=== PATIENT | male | born 1945 | race Caucasian/White ===

== ENCOUNTER → 2017-07-29 09:16 | Outpatient (CLI) | payer MEDICARE, OTHER, SELFPAY ==
--- NOTE | 2017-07-29 09:39 | MRI_ITS ---
STUDY: MRI LEFT THIGH WITHOUT CONTRAST REASON FOR EXAM: Male, 71 years old. Myopathy, elevated CK, bilateral leg pain TECHNIQUE: Standardized fat and water weighted pulse sequences were obtained in all 3 orthogonal planes. COMPARISON: None. FINDINGS: There is mild edema at the distal adductor juice musculature (image 40/50 axial inversion recovery, 14/28 sagittal inversion recovery). There is mild to moderate atrophy at the semitendinosus musculature at the mid thigh (image 29/50 axial T1). There is a small amount of fluid adjacent to the greater trochanter (image 7/50 axial inversion recovery, 14/30 coronal inversion recovery). The visualized portions of the left femur are intact. There is no fracture. There is no infiltrative marrow process. No osteonecrosis. There is no soft tissue mass. There is no fluid collection. There is no hematoma. MRI/Lower Ext/No Jt/w/o IMPRESSION: Edema at the distal adductor juice musculature compatible with myotendinous strain or inflammation Mild to moderate atrophy at the semitendinosus musculature at the mid thigh Greater trochanteric bursitis Electronically Signed: Adrian Hogan MD at 10:13 EST Tel , Service support ,
--- NOTE | 2017-07-29 09:40 | MRI_ITS ---
STUDY: MRI RIGHT HIP WITHOUT CONTRAST REASON FOR EXAM: Male, 71 years old. Myopathy, elevated CK, bilateral leg pain TECHNIQUE: Standardized fat and water weighted pulse sequences were obtained in all 3 orthogonal planes. COMPARISON: None. FINDINGS: There is mild to moderate atrophy at the semitendinosus musculature at the mid thigh (image 28/50 axial T1). There are degenerative changes of the right hip (image 13/28 coronal T2). There is suggestion of fluid at the right knee (image 16/28 sagittal inversion recovery, 9/30 coronal inversion recovery). The visualized right femur is intact. There is no fracture. There is no infiltrative marrow process. There is no osteonecrosis There is no soft tissue mass. There is no fluid collection. There is no hematoma or myotendinous strain. There is no muscle edema. MRI/Lower Ext/No Jt/w/o IMPRESSION: Mild to moderate atrophy of the semitendinosus musculature at the mid thigh Degenerative changes of the right hip Right knee joint effusion Electronically Signed: Adrian Hogan MD at 10:10 EST Tel , Service support ,
== END ==
PROVIDERS: Family Provider Internal Medicine; PCP Internal Medicine; Visit Provider Internal Medicine Rheumatology
DX: R74.8 Abnormal levels of other serum enzymes (principal); G72.9 Myopathy, unspecified
CPT/HCPCS: 73718

== ENCOUNTER 2017-08-02 07:10 | Day surgery (SDC) | payer MEDICARE, OTHER, SELFPAY ==
[2017-08-02 07:36] VITALS: BP 129/82; PULSE 54; RESP 16; TEMP 36.5; O2SAT 97; BMI 31.6
[2017-08-02] MEDS: Cefazolin 2 GM in 0.9% Normal Saline 100 ML IV (08:53)
--- NOTE | 2017-08-02 09:01 | PCM.DC.GS ---
Discharge Diet: Light diet - advance as tolerated - If you have questions about your diet instructions, please talk to your doctor. Discharge Activity: May Not Drive - for 1 week or while taking narcotic pain medicine. May shower in (days): 1 Lifting Restrictions: 10 pounds Call your doctor if your incision/area has: Continuous Slow Oozing, Sudden Increased Bleeding, Increased Pain/ Swelling, Increased Redness, Foul Smelling Discharge Call your doctor if you observe: Fever of 101 or Higher Suture Line Care: Avoid Pulling/Pushing, Avoid Pinching/Bending Additional Dressing/Incision Instructions:: Change or remove dressing in 4 days. Leave steri-strips in place for 1 week. Allergies/Adverse Reactions: Allergies No Known Allergies Allergy (Verified 07/27/17 08:41) Medications to take at Discharge Amlodipine [Norvasc] 5 mg PO LUNCH 11/22/16 Aspirin [Aspirin, Baby] 81 mg PO DAILY 11/22/16 Azilsartan Medoxomil [Edarbi] 80 mg PO DAILY 11/22/16 Cholecalciferol (Vitamin D3) [Vitamin D3] 2,000 unit PO TID 11/22/16 Clopidogrel Bisulfate [Clopidogrel] 75 mg PO DAILY 11/22/16 Metoprolol Succinate [Toprol Xl] 100 mg PO QHS 11/22/16 [place]-3S/Dha/Epa/Fish Oil [Fish Oil 1,200 mg Softgel] 2 ea PO BID 11/22/16 Pantoprazole Sodium [Protonix] 40 mg PO QHS 11/22/16 coenzyme Q10 50 mg chewable tablet 100 mg PO QDAY tab 07/24/17 colesevelam 625 mg tablet 1,875 mg PO LUNCH tab 07/24/17 Colesevelam Hydrochloride [Welchol] 1,875 mg PO DINNER 07/27/17 Evolocumab [Repatha Syringe] 140 mg SQ QWEEK 07/27/17 Levothyroxine [Synthroid] 100 mcg PO DAILY 07/27/17 Oxycodone HCl/Acetaminophen [Percocet 5/325] 1 - 2 tab PO Q4H PRN PRN 4 Days #30 tab 08/02/17 The following prescriptions were given: Oxycodone HCl/Acetaminophen [Percocet 5/325] 1 - 2 tab PO Q4H PRN PRN 4 Days #30 tab PRN Reason: Pain Primary Care Physician: Danyelle Akers DO [Primary Care Provider] - Please Follow Up With: Bradly Frazier MD - [phone] When: Call to make an appointment to be seen in about 10 days.
--- NOTE | 2017-08-02 09:02 | PCM.OPRPT ---
Problem List (1) Suture granuloma Status: Acute Qualifiers: Encounter type: subsequent encounter Qualified Code(s): T81.89XD - Other complications of procedures, not elsewhere classified, subsequent encounter Report of Operation Date of Procedure: 08/02/17 Pre-Operative Diagnosis: t81.89xd suture granuloma Post-Operative Diagnosis: same Surgery/Procedure Performed:: removal of suture granuloma at umbilicus Type of Anesthesia:: MAC Anesthesiologist: Elier Martinez Specimen's removed: suture granuloma Description of Procedure: Patient was brought into the operating room. Under excellent general anesthetic the abdomen was sterilely prepped and draped in the usual fashion. His previous incision at the umbilicus was opened up and I dissected down and identified to 0 Prolene sutures. I remove these without difficulty. I inspected the sutures they were removed in their entirety and no Prolene was left. There was no fascial defects. I brought the skin together with deep dermal stitches of 4-0 Monocryl. Steri-Strips are applied sterile dressings were applied and the patient tolerated the procedure well. - Admit VTE Documentation VTE Present on Admission: No VTE Mechan Device Prophylaxis: SCD's VTE Pharm Prophylaxis ordered?: No Reason prophylaxis not ordered:: Treatment Not Indicated
[2017-08-02] MEDS: Bupivacaine 0.25% 30 ML Vial (09:07)
[2017-08-02 09:26] VITALS: BP 116/65; BP 129/82; PULSE 64; RESP 16; TEMP 36.1; O2SAT 100
[2017-08-02 09:30] VITALS: BP 114/70; BP 129/82; PULSE 57; RESP 16; O2SAT 95
[2017-08-02 09:45] VITALS: BP 122/50; BP 129/82; PULSE 58; RESP 16; TEMP 36.3; O2SAT 95
[2017-08-02 10:20] VITALS: BP 129/82
== END 2017-08-02 10:20 | disposition home or self-care (01) ==
LOC: SDC 07:11 → AC 07:12
PROVIDERS: Family Provider Internal Medicine; PCP Internal Medicine; Visit Provider Surgery
PROC: (CPT 10120; principal; 2017-08-02 09:00)
DX: T81.89XA Other complications of procedures, not elsewhere classified, initial encounter (principal); I10 Essential (primary) hypertension; I25.2 Old myocardial infarction; K21.9 Gastro-esophageal reflux disease without esophagitis; M19.90 Unspecified osteoarthritis, unspecified site; I51.9 Heart disease, unspecified; Z79.82 Long term (current) use of aspirin; Z79.02 Long term (current) use of antithrombotics/antiplatelets; Z79.899 Other long term (current) drug therapy; Z85.828 Personal history of other malignant neoplasm of skin; E07.9 Disorder of thyroid, unspecified; E78.00 Pure hypercholesterolemia, unspecified; Z95.5 Presence of coronary angioplasty implant and graft
CPT/HCPCS: 00400; 10120; J7120; J2405

== ENCOUNTER → 2017-08-18 10:09 | Outpatient (CLI) | payer MEDICARE, OTHER, SELFPAY ==
--- NOTE | 2017-08-18 10:13 | RAD_ITS ---
STUDY: X-RAY CHEST REASON FOR EXAM: Male, 71 years old. Abnormal lung function tests. TECHNIQUE: Frontal and lateral views of the chest. COMPARISON: 09/16/2015. FINDINGS: The lungs are clear and expanded. There is no demonstrated pleural abnormality. Normal size heart. Normal mediastinum and analilia. Normal visualized pulmonary arteries. Normal visualized aortic arch and descending thoracic aorta. Normal visualized thoracic spine. Normal visualized ribs, clavicles, and shoulders. There is no demonstrated abnormality of the visualized soft tissue structures of the upper abdomen. RAD/Chest PA and Lateral IMPRESSION: Normal x-ray examination of the chest. Electronically Signed: Eduardo Reyes MD at 16:50 EDT , Service support ,
== END ==
PROVIDERS: Family Provider Internal Medicine; PCP Internal Medicine; Visit Provider Internal Medicine
DX: R94.2 Abnormal results of pulmonary function studies (principal)
CPT/HCPCS: 71046

== ENCOUNTER → 2017-08-22 09:48 | Outpatient (CLI) | payer MEDICARE, OTHER, SELFPAY ==
--- NOTE | 2017-08-23 17:47 | PFTCOMP ---
COMPLETE PULMONARY FUNCTION TEST INTERPRETATION Brief HPI: Patient is a 71 year old male, currently under the care of Dr. Akers, who presents to [facility] for complete pulmonary function tests secondary to diagnosis of abnormal PFT. Respiratory therapist reports good effort and reproducible results. Interpretation: Forced expiration spirometry shows no large airways obstructive ventilatory defect with an FEV1 of 92 % predicted. There is some bronchodilator response, but this does not reach clinical significance by strict ATS criteria. Spirograms are of good quality and plateau normally. The respiratory flow volume loop shows a normal pattern. Lung volumes by body plethysmography show a normal total lung capacity at 5.42 L, 93 % predicted. All other lung volumes are within normal limits. Diffusion capacity by carbon monoxide is normal at 95 % predicted. The airway resistance is normal. No previous pulmonary function tests were available for review. Impression: These pulmonary function tests are grossly within normal limits. If asthma is a consideration, methacholine challenge would be appropriate.
== END ==
PROVIDERS: Family Provider Internal Medicine; PCP Internal Medicine; Visit Provider Internal Medicine
DX: R94.2 Abnormal results of pulmonary function studies (principal)
CPT/HCPCS: 94060; 94726; 94729

== ENCOUNTER → 2017-10-09 07:52 | Outpatient (CLI) | payer MEDICARE, OTHER, SELFPAY ==
--- NOTE | 2017-10-09 07:56 | US_ITS ---
STUDY: THYROID ULTRASOUND REASON FOR EXAM: Male, 72 years old. Prior right thyroidectomy. TECHNIQUE: Ultrasound evaluation of the thyroid was performed with real-time and static pitts-scale imaging. COMPARISON: October 03, 2016 FINDINGS: RIGHT LOBE: Status post right thyroidectomy. LEFT LOBE: The left lobe of the thyroid gland measures 3.6 x 2 x 1.3 cm. There is a homogeneous echotexture. There are no demonstrated solid, cystic or complex lesions. ISTHMUS: The isthmus measures 3 mm. The regional lymph nodes are normal. US/Thyroid IMPRESSION: Status post right thyroidectomy. Unremarkable left thyroid lobe. No nodules. Electronically Signed: Marcel Daniel DO at 10:45 EDT Tel , Service support ,
--- NOTE | 2017-10-09 07:56 | US_ITS ---
STUDY: ABDOMINAL ULTRASOUND - RIGHT UPPER QUADRANT REASON FOR VISIT: Male, 72 years old. Fatty liver. Cholecystectomy in 2010 TECHNIQUE: Ultrasound evaluation of the right upper quadrant was performed with real-time and static pitts-scale imaging. TECHNICAL QUALITY: Adequate. COMPARISON: None. FINDINGS: Liver: The liver measures 19.3 cm. There is increased echogenicity consistent with fatty infiltration. The bile ducts are within normal limits. There is hepatic color flow. The direction of portal flow is hepatopetal. There is no demonstrated mass lesion. Gallbladder: The patient is status post cholecystectomy. Common Bile Duct (C.B.D.): The common bile duct measures 4.8 mm. Pancreas: Normal size of the head, body and tail of the pancreas. There is increased echogenicity of the pancreas. There is no demonstrated pancreatic mass or cyst. Right Kidney: Normal size of the right kidney. The right kidney measures 12.9 cm. Normal renal cortex. The right cortex measures 1.5 cm. Several anechoic right renal cysts, largest one measuring 2.0 x 1.9 x 1.6 cm in the midpole region. Punctate 5 mm calcification. There is no right hydronephrosis. US/Liver IMPRESSION: Hepatomegaly with hepatic steatosis. Punctate nonobstructing right nephrolithiasis. Right renal cysts. Prior cholecystectomy. Electronically Signed: Marcel Daniel DO at 10:44 EDT Tel , Service support ,
--- NOTE | 2017-10-09 08:45 | CDU_ITS ---
Reason For Study: Carotid Stenosis Rt. Velocities/BP Lt. Velocities/BP Prox CCA 82/22 cm/sec. Prox CCA 55/15 cm/sec. Mid CCA 67/19 cm/sec. Mid CCA 69/19 cm/sec. Dist CCA 55/18 cm/sec. Dist CCA 51/15 cm/sec. Prox ICA 62/19 cm/sec. Prox ICA 60/15 cm/sec. Mid ICA 64/20 cm/sec. Mid ICA 73/23 cm/sec. Dist ICA 63/25 cm/sec. Dist ICA 62/24 cm/sec. Rt. ICA/CCA = 0.95. Lt. ICA/CCA = 1.05. Prox ECA 51/8 cm/sec. Prox ECA 56/10 cm/sec. Rt. Vert. 23/6 cm/sec. Lt. Vert. 42/17 cm/sec. Right Extracranial There is intimal thickening but no significant atherosclerotic plaque noted in the right common carotid artery. There is homogeneous, smooth atherosclerotic plaque noted in the right internal carotid artery. There is intimal thickening but no significant atherosclerotic plaque noted in the right external carotid artery. Antegrade flow is noted in the right vertebral artery. Left Extracranial There is intimal thickening but no significant atherosclerotic plaque noted in the left common carotid artery. There is heterogeneous, smooth atherosclerotic plaque noted in the left internal carotid artery. There is intimal thickening but no significant atherosclerotic plaque noted in the left external carotid artery. Antegrade flow is noted in the left vertebral artery. Procedure Carotid Duplex [id number]. Exam performed in department. Interpretation Summary Mild (<50%) stenosis right extracranial internal carotid. Mild (<50%) stenosis left extracranial internal carotid. Flow within the vertebral arteries is antegrade bilaterally. Ordering Physician: Danyelle Akers Referring Physician: Danyelle Akers Performed By: Zoila Moore, IVONNE, RVT
== END ==
PROVIDERS: Family Provider Internal Medicine; PCP Internal Medicine; Visit Provider Internal Medicine
DX: E04.1 Nontoxic single thyroid nodule (principal); I65.23 Occlusion and stenosis of bilateral carotid arteries; K76.0 Fatty (change of) liver, not elsewhere classified
CPT/HCPCS: 76536; 76705; 93880

== ENCOUNTER → 2018-01-09 10:36 | Outpatient (CLI) | payer MEDICARE, OTHER, SELFPAY | PROVIDERS: Family Provider Internal Medicine; PCP Internal Medicine; Visit Provider Internal Medicine | DX: I25.10 Atherosclerotic heart disease of native coronary artery without angina pectoris (principal) | CPT/HCPCS: 84484 ==

== ENCOUNTER → 2018-04-17 09:39 | Outpatient (CLI) | payer MEDICARE, OTHER, SELFPAY ==
--- NOTE | 2018-04-17 09:42 | RAD_ITS ---
STUDY: X-RAY - RIGHT KNEE REASON FOR EXAM: Male, 72 years old. Pain following a recent fall. TECHNIQUE: 4 view(s) of the knee. COMPARISON: None. FINDINGS: Normal visualized distal femur. Normal visualized proximal tibia and fibula. Normal proximal tibiofibular articulation. There is severe degenerative arthrosis of the medial femorotibial compartment with severe joint space narrowing. There is moderate degenerative arthrosis of the lateral femorotibial compartment with moderate joint space narrowing. There is severe degenerative arthrosis of the patellofemoral articulation. Moderate joint effusion. RAD/Knee 4 or More Views IMPRESSION: Degenerative arthrosis. Moderate joint effusion. Electronically Signed: German Blanca MD at 10:28 EST Tel [phone], Service support ,
== END ==
PROVIDERS: Family Provider Internal Medicine; PCP Internal Medicine; Referring Provider Internal Medicine; Visit Provider Internal Medicine
DX: M25.561 Pain in right knee (principal)
CPT/HCPCS: 73564

== ENCOUNTER → 2018-04-23 12:05 | Outpatient (CLI) | payer MEDICARE, OTHER, SELFPAY ==
--- NOTE | 2018-04-23 12:12 | RAD_ITS ---
STUDY: X-RAY CHEST REASON FOR EXAM: Male, 72 years old. Acute bronchitis. TECHNIQUE: PA and lateral chest COMPARISON: 08/18/2017 FINDINGS: The lungs are clear and expanded. Normal cardiomediastinal silhouette, analilia and pleural margins. No acute osseous or upper abdominal process. RAD/Chest PA and Lateral IMPRESSION: No acute cardiopulmonary process. There is no convincing radiographic evidence of acute pneumonia or bronchitis. Electronically Signed: Girish Freed, at 13:12 EST Tel , Service support ,
== END ==
PROVIDERS: Family Provider Internal Medicine; PCP Internal Medicine; Referring Provider Internal Medicine; Visit Provider Internal Medicine
DX: J20.9 Acute bronchitis, unspecified (principal)
CPT/HCPCS: 71046

== ENCOUNTER → 2018-08-15 16:12 | Outpatient (CLI) | payer MEDICARE, OTHER, SELFPAY ==
--- NOTE | 2018-08-15 16:20 | RAD_ITS ---
STUDY: X-RAY - LEFT SHOULDER REASON FOR EXAM: Left shoulder pain, history of surgery. TECHNIQUE: 4 view(s) of the shoulder. COMPARISON: None. FINDINGS: Normal glenohumeral articulation. Status post excision of the distal clavicle. Normal acromion. Normal humeral head and visualized proximal humerus. The soft tissue structures are unremarkable. Normal visualized pulmonary apex. RAD/Shoulder min 2 Views IMPRESSION: Unremarkable postoperative x-ray examination of the left shoulder. Electronically Signed: Ascencion Mesa MD at 11:48 EDT Tel , Service support ,
== END ==
PROVIDERS: Family Provider Internal Medicine; PCP Internal Medicine; Referring Provider Internal Medicine; Visit Provider Internal Medicine
DX: M25.512 Pain in left shoulder (principal)
CPT/HCPCS: 73030

== ENCOUNTER 2018-09-19 06:25 | Day surgery (SDC) | payer MEDICARE, OTHER, SELFPAY ==
[2018-08-22 09:26] VITALS: BMI 31.6
[2018-09-19] VITALS (7 sets, daily range): BP systolic 84–117; BP diastolic 55–91; PULSE 55–58; RESP 14–16; TEMP 36.7–36.9; O2SAT 92–96; BMI 31.9
--- NOTE | 2018-09-19 07:32 | OP.ENDO_ITS ---
09/19/2018 Danyelle Akers Re : Colonoscopy procedure for Se Akers This procedure was performed on Wednesday, September 19, 2018. My impressions and recommendations are as follows: Impressions : - Diverticulosis in the sigmoid colon. No specimens collected. - The examination was otherwise normal on direct and retroflexion views. Recommendations : - Discharge patient to home. - Resume previous diet. - Continue present medications. - Repeat colonoscopy in 10 years for screening purposes. - Return to my office in 1 week. My findings are described in the full procedure note, which is enclosed. If I can be of further assistance, please feel free to contact me at Doctor phone number(s): , Fax: [phone], Work: . Sincerely, MD Bradly Lombardi MD 09/19/2018 7:32:29 AM This report has been signed electronically.
--- NOTE | 2018-09-27 13:37 | HP_ITS ---
Intake Vital Signs 09/27/18 Body Mass Index (BMI) 31.9 09/27/18 Body Mass Index (BMI) 31.9 09/27/18 Weight: 200 lb 09/27/18 Respiratory Rate 16 09/27/18 Pulse Rate 60 Intake Visit Reasons: f/u c-scope 09/18/18 dp/discuss staple removal Allergies No Known Allergies Allergy (Verified 09/27/18 13:32) Medications Amlodipine [Norvasc] 5 mg PO LUNCH 11/22/16 [History Confirmed 09/27/18] Aspirin [Aspirin, Baby] 81 mg PO DAILY 11/22/16 [History Confirmed 09/27/18] Cholecalciferol (Vitamin D3) [Vitamin D3] 2,000 unit PO TID 11/22/16 [History Confirmed 09/27/18] Clopidogrel Bisulfate [Clopidogrel] 75 mg PO DAILY 11/22/16 [History Confirmed 09/27/18] Metoprolol Succinate [Toprol Xl] 100 mg PO BID 11/22/16 [History Confirmed 09/27/18] [place]-3S/Dha/Epa/Fish Oil [Fish Oil 1,200 mg Softgel] 2 ea PO BID 11/22/16 [History Confirmed 09/27/18] Pantoprazole Sodium [Protonix] 40 mg PO DAILY 11/22/16 [History Confirmed 09/27/18] coenzyme Q10 50 mg chewable tablet 200 mg PO QDAY tab 07/24/17 [History Confirmed 09/27/18] Levothyroxine [Synthroid] 100 mcg PO DAILY 07/27/17 [History Confirmed 09/27/18] alirocumab 75 mg/mL subcutaneous pen injector 75 mg SC Q2W 08/22/18 [History Confirmed 09/27/18] [facility] Medical History Suture granuloma (Acute) Acid reflux (Acute) Arthritis (Acute) Back problem (Acute) Heart disease (Acute) Past heart attack (Acute) Hypertension (Chronic) Surgical History History of angioplasty (Acute) History of laparoscopic cholecystectomy (Acute) History of repair of right rotator cuff (Acute) History of right knee surgery (Acute) History of total right knee replacement (Acute) history excision suture granuloma (Acute ~08/02/17) history left shoulder surgery (Acute) history right carpal tunnel release (Acute) history right thyroid lobectomy (Acute) history trigger finger release (Acute) Family History Brother Bleeding disorder Diabetes Hypertension Heart disease High cholesterol CVA (cerebral vascular accident) Mother Heart disease Hypertension CVA (cerebral vascular accident) Father Heart disease Hypertension CVA (cerebral vascular accident) Social History Smoking Status: Never smoker alcohol intake: current alcohol intake frequency: a few times a month substance use type: does not use HPI HPI HPI: SON HARRIS is a 72 M who presents to the office today for HPI HPI Surgical H&P: Yes HPI: SON HARRIS is a 72 M who presents to the office today for follow-up from a colonoscopy. Patient had a colonoscopy completed it [facility] on 09/19/2018. This was done for a personal history of colonic polyps his scope was rather negative he had diverticulosis of the sigmoid colon otherwise there was no abnormalities identified I have recommended that he undergo another colonoscopy in 10 years. Back in July of last year I removed several Prolene sutures that were suture granulomas from his umbilical incision. He feels another one on the lateral aspect of the incision that is painful and is giving him shooting pains throughout the right side of his abdomen. Nothing appears to be poking through the skin but he says he can definitely feel it and palpate it. Exam Const General: no acute distress, well developed, well hydrated Orientation: oriented to person, oriented to place, oriented to time [facility] Head: normocephalic, atraumatic Ears: external ears normal Mouth: moist mucous membranes Eyes Sclera: sclerae normal Pupils: normal by confrontation Neck Neck: no lymphadenopathy noted Neck mass: No Thyroid: thyroid normal, symmetrical Chest Chest palpation & inspection: normal inspection of the chest Resp Effort & Inspection: normal respiratory effort Auscultation: clear to auscultation bilaterally Percussion: percussion normal Cardio Rate: regular rate Rhythm: regular rhythm GI Palpation: soft, no hepatosplenomegaly, no masses, nontender Rectal Exam: other Other: Rectal exam deferred. Skin Other: In the umbilical area on the right side of the incision is an obvious suture granuloma that is tender to touch. Feels consistent with another Prolene suture Extrem General: normal to inspection, no clubbing, cyanosis or edema Assessment & Plan Problems 1. Suture granuloma, subsequent encounter T81.89XD Plan My plan is to excise the suture granuloma in the OR under a general anesthetic.We discussed the risks and benefits of the planned procedure. I have informed the patient that complications can occur including failure to complete the procedure. The patient had the opportunity to ask questions concerning the planned procedure. My staff has also explained the procedure to the patient in understandable terms and has given the patient printed material concerning the procedure. The patient freely consents to the procedure. Coding Level of Care Code Off vis,est,level 2 Diagnoses Suture granuloma, subsequent encounter T81.89XD ??Encounter type: subsequent encounter I have re-examined the patient. There are no clinical changes since date of exam.
== END 2018-09-19 08:30 | disposition home or self-care (01) ==
LOC: EN 06:26 → AC 06:27
PROVIDERS: Family Provider Internal Medicine; PCP Internal Medicine; Referring Provider Internal Medicine; Visit Provider Surgery
PROC: 0DJD8ZZ Inspection of Lower Intestinal Tract, Via Natural or Artificial Opening Endoscopic (ICD-10-PCS; CPT 45378; principal; 2018-09-19 07:25)
DX: Z12.11 Encounter for screening for malignant neoplasm of colon (principal); K57.30 Diverticulosis of large intestine without perforation or abscess without bleeding; Z86.010 Personal history of colon polyps; Z79.82 Long term (current) use of aspirin; Z79.899 Other long term (current) drug therapy; M19.90 Unspecified osteoarthritis, unspecified site; K21.9 Gastro-esophageal reflux disease without esophagitis; I10 Essential (primary) hypertension; I25.2 Old myocardial infarction; I51.9 Heart disease, unspecified
CPT/HCPCS: G0105; J7120

== ENCOUNTER 2018-10-04 06:10 | Day surgery (SDC) | payer MEDICARE, OTHER, SELFPAY ==
[2018-09-27 13:33] VITALS: BMI 31.9
--- NOTE | 2018-09-27 13:37 | HP_ITS ---
Intake Vital Signs 09/27/18 Body Mass Index (BMI) 31.9 09/27/18 Body Mass Index (BMI) 31.9 09/27/18 Weight: 200 lb 09/27/18 Respiratory Rate 16 09/27/18 Pulse Rate 60 Intake Visit Reasons: f/u c-scope 09/18/18 dp/discuss staple removal Allergies No Known Allergies Allergy (Verified 09/27/18 13:32) Medications Amlodipine [Norvasc] 5 mg PO LUNCH 11/22/16 [History Confirmed 09/27/18] Aspirin [Aspirin, Baby] 81 mg PO DAILY 11/22/16 [History Confirmed 09/27/18] Cholecalciferol (Vitamin D3) [Vitamin D3] 2,000 unit PO TID 11/22/16 [History Confirmed 09/27/18] Clopidogrel Bisulfate [Clopidogrel] 75 mg PO DAILY 11/22/16 [History Confirmed 09/27/18] Metoprolol Succinate [Toprol Xl] 100 mg PO BID 11/22/16 [History Confirmed 09/27/18] [place]-3S/Dha/Epa/Fish Oil [Fish Oil 1,200 mg Softgel] 2 ea PO BID 11/22/16 [History Confirmed 09/27/18] Pantoprazole Sodium [Protonix] 40 mg PO DAILY 11/22/16 [History Confirmed 09/27/18] coenzyme Q10 50 mg chewable tablet 200 mg PO QDAY tab 07/24/17 [History Confirmed 09/27/18] Levothyroxine [Synthroid] 100 mcg PO DAILY 07/27/17 [History Confirmed 09/27/18] alirocumab 75 mg/mL subcutaneous pen injector 75 mg SC Q2W 08/22/18 [History Confirmed 09/27/18] [facility] Medical History Suture granuloma (Acute) Acid reflux (Acute) Arthritis (Acute) Back problem (Acute) Heart disease (Acute) Past heart attack (Acute) Hypertension (Chronic) Surgical History History of angioplasty (Acute) History of laparoscopic cholecystectomy (Acute) History of repair of right rotator cuff (Acute) History of right knee surgery (Acute) History of total right knee replacement (Acute) history excision suture granuloma (Acute ~08/02/17) history left shoulder surgery (Acute) history right carpal tunnel release (Acute) history right thyroid lobectomy (Acute) history trigger finger release (Acute) Family History Brother Bleeding disorder Diabetes Hypertension Heart disease High cholesterol CVA (cerebral vascular accident) Mother Heart disease Hypertension CVA (cerebral vascular accident) Father Heart disease Hypertension CVA (cerebral vascular accident) Social History Smoking Status: Never smoker alcohol intake: current alcohol intake frequency: a few times a month substance use type: does not use HPI HPI HPI: SON HARRIS is a 72 M who presents to the office today for HPI HPI Surgical H&P: Yes HPI: SON HARRIS is a 72 M who presents to the office today for follow-up from a colonoscopy. Patient had a colonoscopy completed it [facility] on 09/19/2018. This was done for a personal history of colonic polyps his scope was rather negative he had diverticulosis of the sigmoid colon otherwise there was no abnormalities identified I have recommended that he undergo another colonoscopy in 10 years. Back in July of last year I removed several Prolene sutures that were suture granulomas from his umbilical incision. He feels another one on the lateral aspect of the incision that is painful and is giving him shooting pains throughout the right side of his abdomen. Nothing appears to be poking through the skin but he says he can definitely feel it and palpate it. Exam Const General: no acute distress, well developed, well hydrated Orientation: oriented to person, oriented to place, oriented to time [facility] Head: normocephalic, atraumatic Ears: external ears normal Mouth: moist mucous membranes Eyes Sclera: sclerae normal Pupils: normal by confrontation Neck Neck: no lymphadenopathy noted Neck mass: No Thyroid: thyroid normal, symmetrical Chest Chest palpation & inspection: normal inspection of the chest Resp Effort & Inspection: normal respiratory effort Auscultation: clear to auscultation bilaterally Percussion: percussion normal Cardio Rate: regular rate Rhythm: regular rhythm GI Palpation: soft, no hepatosplenomegaly, no masses, nontender Rectal Exam: other Other: Rectal exam deferred. Skin Other: In the umbilical area on the right side of the incision is an obvious suture granuloma that is tender to touch. Feels consistent with another Prolene suture Extrem General: normal to inspection, no clubbing, cyanosis or edema Assessment & Plan Problems 1. Suture granuloma, subsequent encounter T81.89XD Plan My plan is to excise the suture granuloma in the OR under a general anesthetic.We discussed the risks and benefits of the planned procedure. I have informed the patient that complications can occur including failure to complete the procedure. The patient had the opportunity to ask questions concerning the planned procedure. My staff has also explained the procedure to the patient in understandable terms and has given the patient printed material concerning the procedure. The patient freely consents to the procedure. Coding Level of Care Code Off vis,est,level 2 Diagnoses Suture granuloma, subsequent encounter T81.89XD ??Encounter type: subsequent encounter I have re-examined the patient. There are no clinical changes since date of exam.
[2018-10-04] VITALS (14 sets, daily range): BP systolic 70–126; BP diastolic 48–77; PULSE 46–55; RESP 14–16; TEMP 36.1–36.6; O2SAT 92–98; BMI 32.4
[2018-10-04] MEDS: Cefazolin 2 GM in 0.9% Normal Saline 100 ML IV (07:23)
--- NOTE | 2018-10-04 07:34 | PCM.OPRPT ---
Problem List (1) Suture granuloma Status: Acute Qualifiers: Encounter type: subsequent encounter Report of Operation Date of Procedure: 10/04/18 Pre-Operative Diagnosis: Suture granuloma Post-Operative Diagnosis: Same Surgery/Procedure Performed:: removal of suture granuloma Type of Anesthesia:: Local MAC Anesthesiologist: Yuri Yousif Specimen's removed: Prolene suture Fluids Replaced: 200 CC Description of Procedure: Patient was brought into the operating room. Placed in the supine position. Under excellent MAC anesthetic the abdomen was sterilely prepped and draped in usual fashion. Local was injected at the umbilical incision. I opened up the incision. I dissected down grabbed the Prolene suture and removed it in its entirety with a scalpel palpation did not reveal any other suture granulomas. Local was injected. The skin was brought together with interrupted 5-0 nylon. Sterile dressings were applied. The patient tolerated the procedure well. - Admit VTE Documentation VTE Present on Admission: No VTE Mechan Device Prophylaxis: SCD's VTE Pharm Prophylaxis ordered?: No Reason prophylaxis not ordered:: Treatment Not Indicated
[2018-10-04] MEDS: Bupivacaine Mpf 0.5% 30 ML VIAL (07:36)
--- NOTE | 2018-10-04 07:38 | PCM.DC.HER ---
Discharge Diet: Light diet - advance as tolerated Discharge Activity: Return to Normal Activity, May Drive - when you are no longer taking narcotic pain medications., May Shower - with the bandage in place 1-2 days after surgery. Lifting Restrictions: 20 pounds for 8 weeks. Additional Activity Instructions:: Climbing stairs is fine, walking is encouraged. Sitting in bed may be uncomfortable. Sitting up using your lateral muscles (sitting up sideways) is usually more comfortable. Do not drive, work heavy equipment of sign legal documents for 24 hours. If your hernia repair was an ingunial repair, you may have scrotal swelling, an ice pack and/or athletic support can provide more comfort. Pain medications may cause nausea, you should typically eat light foods as you take your pain medications. Pain medications may also cause constipation. If you have difficulty with this, discuss with your doctor. Call your doctor if your incision/area has: Continuous Slow Oozing, Sudden Increased Bleeding, Increased Pain/ Swelling, Increased Redness, Foul Smelling Discharge Call your doctor if you observe: Fever of 101 or Higher Suture Line Care: Avoid Pulling/Pushing, Avoid Pinching/Bending Additional Dressing/Incision Instructions:: Leave the operative bandage on for 2-3 days. When you remove the bandage, leave the steri-strips on place until your follow up appointment or they fall off. Allergies/Adverse Reactions: Allergies No Known Allergies Allergy (Verified 10/04/18 06:24) Medications to take at Discharge Amlodipine [Norvasc] 5 mg PO LUNCH 11/22/16 Aspirin [Aspirin, Baby] 81 mg PO DAILY 11/22/16 Cholecalciferol (Vitamin D3) [Vitamin D3] 2,000 unit PO TID 11/22/16 Clopidogrel Bisulfate [Clopidogrel] 75 mg PO DAILY 11/22/16 Metoprolol Succinate [Toprol Xl] 100 mg PO BID 11/22/16 [place]-3S/Dha/Epa/Fish Oil [Fish Oil 1,200 mg Softgel] 2 ea PO BID 11/22/16 Pantoprazole Sodium [Protonix] 40 mg PO DAILY 11/22/16 coenzyme Q10 50 mg chewable tablet 200 mg PO QDAY tab 07/24/17 Levothyroxine [Synthroid] 100 mcg PO DAILY 07/27/17 alirocumab 75 mg/mL subcutaneous pen injector 75 mg SC Q2W 08/22/18 Primary Care Physician: Danyelle Akers DO [Primary Care Provider] - Test Results: Test results from this visit will be discussed in further detail at your follow-up appointment, if applicable. Please Follow Up With: Bradly Frazier MD - [phone] When: Plan to have a follow up appointment in 7 days. Call to schedule.
== END 2018-10-04 10:13 | disposition home or self-care (01) ==
LOC: SDC 06:11 → AC 06:12
PROVIDERS: Family Provider Internal Medicine; PCP Internal Medicine; Referring Provider Surgery; Visit Provider Surgery
PROC: (CPT 10120; principal; 2018-10-04 07:00)
DX: L92.3 Foreign body granuloma of the skin and subcutaneous tissue (principal); I10 Essential (primary) hypertension; E78.00 Pure hypercholesterolemia, unspecified; K21.9 Gastro-esophageal reflux disease without esophagitis; Z79.02 Long term (current) use of antithrombotics/antiplatelets; Z79.82 Long term (current) use of aspirin; Z79.899 Other long term (current) drug therapy; I25.2 Old myocardial infarction; Z86.010 Personal history of colon polyps; Z95.5 Presence of coronary angioplasty implant and graft
CPT/HCPCS: 10120; J7120

== ENCOUNTER → 2018-10-15 | Outpatient (CLI) | payer MEDICARE, OTHER, SELFPAY ==
[2018-10-04 06:27] VITALS: BMI 32.4
--- NOTE | 2018-10-15 08:10 | US_ITS ---
STUDY: THYROID ULTRASOUND REASON FOR EXAM: Male, 73 years old. Nodule. Right thyroidectomy 2017. TECHNIQUE: Ultrasound evaluation of the thyroid was performed with real-time and static pitts-scale imaging. COMPARISON: None. FINDINGS: RIGHT LOBE: The patient status post partial thyroidectomy. LEFT LOBE: The left lobe of the thyroid gland measures 3.6 x 2.1 x 1.5 cm. There is a homogeneous echotexture. There is a well-circumscribed anechoic 3.9 x 3.0 x 2.8 mm anechoic focus within the left lobe that contains a echogenic focus within appearance most consistent with a colloid cyst. ISTHMUS: The isthmus measures 3.0 mm . 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 No solid nodules identified. Electronically Signed: Farrah Guadarrama MD at 17:03 EDT Tel , Service support ,
--- NOTE | 2018-10-15 08:10 | US_ITS ---
STUDY: ABDOMINAL ULTRASOUND - RIGHT UPPER QUADRANT REASON FOR VISIT: Male, 73 years old. Status post cholecystectomy. History of fatty infiltration of the liver. TECHNIQUE: Ultrasound evaluation of the right upper quadrant was performed with real-time and static pitts-scale imaging. TECHNICAL QUALITY: Adequate. COMPARISON: Comparison is made with prior examination October 09, 2017. FINDINGS: Liver: The liver is enlarged and measures 19.2 cm. There is increased echogenicity consistent with fatty infiltration. The bile ducts are within normal limits. There is hepatic color flow. The direction of portal flow is hepatopetal. There is no demonstrated mass lesion. Gallbladder: The patient is status post cholecystectomy. Common Bile Duct (C.B.D.): The common bile duct measures 4.4 mm. Pancreas: Normal size of the head, body and tail of the pancreas. There is increased echogenicity of the pancreas. There is no demonstrated pancreatic mass or cyst. Right Kidney: Normal size of the right kidney. The right kidney measures 12.9 cm x 5.2 cm x 5.7 cm. Normal renal cortex. The right cortex measures 1.5 cm. Once again, 2 cysts are seen. The largest measures 1.9 cm x 1.8 cm x 1.5 cm. There is no right hydronephrosis. US/Liver IMPRESSION: Hepatomegaly and fatty infiltration of the liver. Prior cholecystectomy. Stable right renal cysts. Electronically Signed: German Blanca, at 15:47 EDT , Service support ,
--- NOTE | 2018-10-15 08:58 | CDU_ITS ---
Reason For Study: CAROTID STENOSIS Rt. Velocities/BP Lt. Velocities/BP Prox CCA 115/24 cm/sec. Prox CCA 82/22 cm/sec. Mid CCA 85/21 cm/sec. Mid CCA 74/19 cm/sec. Dist CCA 59/15 cm/sec. Dist CCA 63/18 cm/sec. Prox ICA 54/15 cm/sec. Prox ICA 41/15 cm/sec. Mid ICA 40/11 cm/sec. Mid ICA 78/20 cm/sec. Dist ICA 57/23 cm/sec. Dist ICA 95/35 cm/sec. Rt. ICA/CCA = .5. Lt. ICA/CCA = 1.2. Prox ECA 54/8 cm/sec. Prox ECA 67/ cm/sec. Rt. Vert. 22/7 cm/sec. Lt. Vert. 39/14 cm/sec. Right Extracranial There is intimal thickening but no significant atherosclerotic plaque noted in the right common carotid artery. There is homogeneous, smooth atherosclerotic plaque noted in the right internal carotid artery. There is intimal thickening but no significant atherosclerotic plaque noted in the right external carotid artery. Antegrade flow is noted in the right vertebral artery. Left Extracranial There is homogeneous, smooth atherosclerotic plaque noted in the left common carotid artery. There is homogeneous, smooth atherosclerotic plaque noted in the left internal carotid artery. There is homogeneous, smooth atherosclerotic plaque noted in the left external carotid artery. Antegrade flow is noted in the left vertebral artery. There is homogeneous, smooth atherosclerotic plaque noted in the left bulb. Procedure Carotid Duplex 71299. Exam performed in department. Interpretation Summary Mild (<50%) stenosis right extracranial internal carotid. Mild (<50%) stenosis left extracranial internal carotid. Flow within the vertebral arteries is antegrade bilaterally. Homogeneous, smooth atherosclerotic plaque is noted in the left carotid bulb, which does not appear to be hemodynamically significant. Ordering Physician: Danyelle Akers Referring Physician: Danyelle Akers Performed By: Yi Trinidad, IVONNE, RVT
== END | disposition home or self-care (01) ==
LOC: US 08:06
PROVIDERS: Family Provider Internal Medicine; PCP Internal Medicine; Referring Provider Internal Medicine; Visit Provider Internal Medicine
DX: E04.1 Nontoxic single thyroid nodule (principal); K76.0 Fatty (change of) liver, not elsewhere classified; I65.23 Occlusion and stenosis of bilateral carotid arteries
CPT/HCPCS: 76536; 76705; 93880

== ENCOUNTER → 2019-08-14 15:59 | Outpatient (CLI) | payer MEDICARE, SELFPAY ==
[2018-10-04 06:27] VITALS: BMI 32.4
--- NOTE | 2019-08-14 16:03 | RAD_ITS ---
STUDY: X-RAY CHEST REASON FOR EXAM: Male, 73 years old. Influenza b TECHNIQUE: Frontal and lateral views of the chest. COMPARISON: 04/23/2018. FINDINGS: The lungs are clear and expanded. There is no demonstrated pleural abnormality. Normal size heart. Normal mediastinum and analilia. Normal visualized pulmonary arteries. Normal visualized aortic arch and descending thoracic aorta. There are diffuse degenerative changes of the visualized thoracic spine. Normal visualized ribs, clavicles, and shoulders. There is no demonstrated abnormality of the visualized soft tissue structures of the upper abdomen. RAD/Chest PA and Lateral IMPRESSION: No definite acute or significant abnormality seen. Electronically Signed: Eduardo Reyes MD at 16:27 EDT , Service support ,
== END ==
PROVIDERS: PCP Internal Medicine; Referring Provider Internal Medicine; Visit Provider Internal Medicine
DX: J10.1 Influenza due to other identified influenza virus with other respiratory manifestations (principal)
CPT/HCPCS: 71046

== ENCOUNTER → 2019-12-13 12:20 | Outpatient (CLI) | payer MEDICARE, SELFPAY ==
[2018-10-04 06:27] VITALS: BMI 32.4
--- NOTE | 2019-12-13 12:24 | CT_ITS ---
STUDY: CT ABDOMEN AND PELVIS WITH CONTRAST REASON FOR EXAM: Male, 74 years old. RECENT 5 VESSEL CABG (11/09/2019), LT LEG DVT, LT GROIN PAIN RADIATION DOSAGE (If Supplied By Facility): CTDIvol = ( 17.02 ) mGy, DLP = ( 1018.09 ) mGycm TECHNIQUE: Transaxial images were obtained from the dome of the diaphragm to the symphysis pubis with oral contrast. Oral and amp; IV Gastrografin and amp; 100mL Isovue-300 was administered. Sagittal and coronal images were reconstructed. Individualized dose optimization techniques were used for this CT. COMPARISON: Comparison is made with prior examination dated February 10, 2017. FINDINGS: Small left pleural effusion with underlying basilar atelectasis. Prior CABG. Normal liver. There are surgical clips in the gallbladder fossa consistent with a prior cholecystectomy. Normal spleen. Normal pancreas. Normal bilateral adrenal glands. Small right renal cyst. Tiny calyceal stone in the lower pole of the right kidney. There is a 4.9 mm nonobstructive calculus in the upper pole calyx of the left kidney. A 3 mm calculus is also seen in the mid pole calyx of the left kidney. 2 tiny nonobstructive intrarenal calculi are seen in the lower pole calyx of the left kidney. Focal cortical scarring in the lower pole. 1 cm cyst in the midportion of the left kidney. Normal visualized stomach. Normal small intestine. There are scattered colonic diverticula consistent with diverticulosis. There is non-visualization of the appendix. There is diffuse atherosclerotic calcification of the abdominal aorta, without a demonstrated aneurysm. Normal inferior vena cava. Normal retroperitoneum. Normal urinary bladder. Normal abdominal wall. There are degenerative changes of the visualized lumbar spine. CT/Abdomen/Pelvis WITH Contrast IMPRESSION: Small left pleural effusion with left basilar atelectasis. Multiple nonobstructive left intrarenal calculi. Bilateral renal cysts. Electronically Signed: German Blanca, at 14:48 EDT , Service support ,
[2019-12-13 13:17] LABS: Absolute Lymphocyte Count 2.08 X10^3/uL (0.83-4.51); Basophil# 0.04 X10^3/uL; Basophil% 0.5 % (0-1); Eosinophil# 0.29 X10^3/uL; Eosinophils% 3.6 % (0-5); Hematocrit 33.4 % (40-54); Hemoglobin 10.5 g/dL (13.0-16.5); Lymphocyte # 2.08 X10^3/ul (4.0); Mean Corp Hgb Conc 31.4 g/dL (32-36); Mean Corpuscular Hgb 30.6 pg (27.0-32.0); Mean Corpuscular Volume 97.4 fL (80-94); Mean Platelet Vol. 9.1 fl (6.2-12.0); Monocyte# 0.56 X10^3/uL; NRBC Flagged by Analyzer 0 % (0-5); Neutrophil # 4.97 X10^3/uL (2.7-7.7); Neutrophil % 62.3 % (47-70); Platelet Count 358 K/mm3 (150-450); RBC Distribution Width CV 13.9 % (11.6-14.6); RBC Distribution Width SD 49.5 fl (35.1-43.9); Red Blood Count 3.43 M/mm3 (4.6-6.2)
[2019-12-13 13:33] LABS: ALB/GLOB Ratio 1.3 RATIO (0.9-2.4); AST(SGOT) 18 U/L (15-37); Alanine Aminotransfer ALT/SGPT 40 U/L (16-61); Albumin, Serum 3.5 g/dL (3.2-5.0); Alkaline Phosphatase 119 U/L (45-117); Anion Gap 4 (5-15); BUN 20 mg/dL (7-18); BUN/Creat Ratio 16.8 RATIO (10-20); Calcium,Total 9.1 mg/dL (8.5-10.1); Chloride 110 mmol/L (98-107); Creatinine, Serum 1.19 mg/dL (0.70-1.30); EST Glomerular Filtration Rate 64 mL/min (>60); Est Glom Filt Rate - Afr Amer 77 mL/min (>60); Globulin 2.7 g/dL (2.2-4.2); Glucose 89 mg/dL (74-106); Potassium 5.4 mmol/L (3.5-5.1); Protein, Total 6.2 g/dL (6.4-8.2); Sodium Level 143 mmol/L (136-145)
[2019-12-13 14:21] LABS: CREATININE FINGERSTICK 0.8 mg/dL (0.70-1.30); EGFR FINGERSTICK > 60.0000 mL/min (>60)
--- NOTE | 2019-12-13 15:31 | VDLE_ITS ---
Reason For Study: DVT RIGHT LEFT CFV is compressible, spontaneous, competent GSV below knee is compressible, above knee and demonstrates pulsatile venous flow. was previously harvested. Procedure CFV is compressible, spontaneous, competent, Exam performed in department. and demonstrates pulsatile venous flow. A preliminary report was called and/or faxed FV is compressible, spontaneous, competent to Fast. and demonstrates pulsatile venous flow. POP V is compressible, spontaneous, competent and demonstrates pulsatile venous flow. T/P Trunk is compressible. PTV is compressible. LT PerV is compressible. Interpretation Summary Deep veins of the left lower extremity are patent and compressible segmentally. There is no evidence of left lower extremity deep vein thrombosis. Valvular competence appears intact within the proximal deep venous system on the left . The left great saphenous vein is patent and compressible below the knee, but has been previously harvested above the knee. Pulsatile flow is noted in the deep venous system, which may be indicative of elevated central venous pressure (i.e. congestive heart failure, tricuspid valve insufficiency, etc.). Clinical correlation is advised. Ordering Physician: Danyelle Akers Referring Physician: Danyelle Akers Performed By: Maggie Ziegler RVT and Student
== END ==
PROVIDERS: PCP Internal Medicine; Referring Provider Internal Medicine; Visit Provider Internal Medicine
DX: R10.32 Left lower quadrant pain (principal); I82.412 Acute embolism and thrombosis of left femoral vein
CPT/HCPCS: 74177; 80053; 85025; 93971; Q9967

== ENCOUNTER → 2020-09-21 16:33 | Outpatient (CLI) | payer MEDICARE, SELFPAY ==
[2018-10-04 06:27] VITALS: BMI 32.4
--- NOTE | 2020-09-21 16:36 | RAD_ITS ---
INDICATION: SHORTNESS OF BREATH EXAMINATION/TECHNIQUE: X-RAY - XR Chest 2 Views COMPARISON: 08/14/2019. FINDINGS: Median sternotomy wires present. The lungs are clear. The heart is enlarged. Multiple mediastinal clips. No pleural effusion or pneumothorax. No acute osseous abnormalities. Degenerative changes of the shoulders and spine. RAD/Chest PA and Lateral IMPRESSION: No acute radiographic abnormalities. Cardiomegaly. Electronically Signed: Fadi Patiño MD at 21:56 EDT Tel , Service support ,
== END ==
PROVIDERS: PCP Internal Medicine; Referring Provider Internal Medicine; Visit Provider Internal Medicine
DX: R06.02 Shortness of breath (principal)
CPT/HCPCS: 71046

== ENCOUNTER 2021-01-27 16:50 | Outpatient (CLI) | payer MEDICARE, SELFPAY ==
[2021-01-27 16:52] VITALS: BP 88/66; PULSE 52; RESP 16; TEMP 36.8; O2SAT 99; BMI 27.3
[2021-01-27] MEDS: 0.9% Saline Lock 10 ML Syringe IV ×2 (17:10→18:56)
--- NOTE | 2021-01-27 17:17 | NURSING ---
Mary notified of pt's bb 88/ upon arrival w/ variable pulse rate down as low as 48 momentarily. Pt denies any dizziness, chest pain, etc. Pt has hx of a.fib Proceed w/ infusion as ordered and encourage po intake at discharge.
[2021-01-27 17:25] VITALS: BP 104/72; PULSE 54; RESP 18; TEMP 36.7; O2SAT 98
[2021-01-27 17:51] VITALS: BP 109/57; PULSE 76; RESP 16; TEMP 36.9; O2SAT 99
[2021-01-27 18:51] VITALS: BP 122/75; PULSE 94; RESP 16; TEMP 36.8; O2SAT 99
[2021-01-27] MEDS: MethylPREDNISolone 125 MG/2 ML Vial IV (18:56)
--- NOTE | 2021-01-27 18:59 | NURSING ---
Pt noted to have some flushing of face and some mild chills. Message left with Mary updating her that pt's vs have improved and that solumedrol was given for facial flushing. Pt denies any additional symptoms at this time.
[2021-01-27 19:26] VITALS: BP 118/76; PULSE 76; RESP 16; TEMP 36.4; O2SAT 98
== END 2021-01-27 19:35 | disposition home or self-care (01) ==
LOC: ICUOUT 16:50 → MS2 16:51
PROVIDERS: PCP Internal Medicine; Referring Provider Nurse Practitioner Acute Care; Visit Provider Nurse Practitioner Acute Care
DX: Z23 Encounter for immunization (principal); U07.1 COVID-19
CPT/HCPCS: 84484; J7050; M0243; A4216; Q0244

== ENCOUNTER → 2021-01-27 | Outpatient (CLI) | payer MEDICARE, SELFPAY ==
[2021-01-27 18:18] LABS: Troponin-I HS 47 pg/mL (3.0-78.0)
== END | disposition home or self-care (01) ==
PROVIDERS: PCP Internal Medicine; Visit Provider Internal Medicine
DX: U07.1 COVID-19 (principal)
CPT/HCPCS: 84484

== ENCOUNTER 2021-08-23 15:17 | Outpatient (CLI) | payer MEDICARE, SELFPAY ==
[2021-08-23 16:17] LABS: BNP,B-Type NATRIURETIC PEPTIDE 345.1 pg/mL (0-100)
== END 2021-08-23 23:59 | disposition home or self-care (01) ==
PROVIDERS: PCP Internal Medicine; Referring Provider Internal Medicine; Visit Provider Internal Medicine
DX: I50.9 Heart failure, unspecified (principal)
CPT/HCPCS: 36415; 83880

== ENCOUNTER 2022-03-29 15:14 | Outpatient (CLI) | payer MEDICARE, SELFPAY ==
[2022-03-29 15:29] VITALS: BP 111/64; PULSE 60; RESP 18; TEMP 36.5; O2SAT 98; BMI 28.8
[2022-03-29] MEDS: 0.9% Saline Lock 10 ML Syringe IV ×3 (15:38→15:54)
[2022-03-29] MEDS: BEBTELOVIMAB 175 MG/2 ML VIAL IV (15:53)
[2022-03-29 16:22] VITALS: BP 109/67; PULSE 58; RESP 18; TEMP 36.5; O2SAT 96
[2022-03-29 16:44] VITALS: BP 106/63; PULSE 58; RESP 18; TEMP 36.7; O2SAT 99
== END 2022-03-29 16:53 | disposition home or self-care (01) ==
LOC: MS3OUT 15:14 → MS2 15:15
PROVIDERS: PCP Internal Medicine; Referring Provider Nurse Practitioner Acute Care; Visit Provider Nurse Practitioner Acute Care
DX: U07.1 COVID-19 (principal)
CPT/HCPCS: M0222; Q0222; A4216

== ENCOUNTER → 2025-03-13 | Outpatient (CLI) | payer MEDICARE, SELFPAY ==
[2025-03-13 13:55] LABS: Color, Urine Yellow (Yellow); Glucose, Dipstick 1000 mg/dl (Normal); Ketone-Dipstick Negative (Negative); Leukocyte Esterase-Dipstick 25 /ul (Negative); Nitrite-Dipstick Negative (Negative); Occult Blood-Urine 50 /ul (Negative); Protein-Dipstick 30 mg/dl (Negative); Specific Gravity, Urine 1.020 (1.002-1.030); Urine Bilirubin Dipstick Negative (Negative)
[2025-03-13 13:58] LABS: Hematocrit 49.4 % (40-54); Hemoglobin 16.4 g/dL (13.0-16.5); Immature Granulocytes Count 0.030 X10^3/uL (0.0-0.0); Mean Corp Hgb Conc 33.2 g/dL (32-36); Mean Corpuscular Volume 93.4 fL (80-94); Mean Platelet Vol. 9.4 fl (6.2-12.0); Mucous, Urine 0 SEEN /hpf (<or=2+); NRBC Flagged by Analyzer 0 % (0-5); Platelet Count 162 K/mm3 (150-450); RBC Distribution Width CV 13.8 % (11.6-14.6); RBC Distribution Width SD 47.7 fl (35.1-43.9); Red Blood Count 5.29 M/mm3 (4.6-6.2); Squamous Epithelial Cells - UA 0 SEEN /hpf (0-5); White Blood Count 7.1 K/mm3 (4.4-11.0)
[2025-03-13 14:17] LABS: AST(SGOT) 33 U/L (<=37); Alanine Aminotransfer ALT/SGPT 40 U/L (<=46); Albumin, Serum 4.7 g/dL (3.4-4.8); Alkaline Phosphatase 75 U/L (40-129); Anion Gap 10 (5-15); BUN 24 mg/dL (4-19); BUN/Creat Ratio 22.4 RATIO (10-20); Calcium,Total 9.7 mg/dL (7.6-11.0); Carbon Dioxide 26.4 mmol/L (21.0-32.0); Chloride 109 mmol/L (98-108); Globulin 2.1 g/dL (2.2-4.2); Glucose 120 mg/dL (70-99); Potassium 4.6 mmol/L (3.3-5.1)
[2025-03-13 14:23] LABS: Creatinine, Urine (random) 101.00 mg/dL (39.00-259.00); Microalbumin,Random Urine 109.0 mg/L (<20 mg/L)
[2025-03-13 15:13] LABS: FOLATES,SERUM (FOLIC ACID) 18.10 ng/mL (4.60-34.80)
[2025-03-13 15:14] LABS: Vitamin B12 553 pg/mL (180-914)
[2025-03-13 17:50] LABS: Red Blood Cells-Urine 0-5 SEEN /hpf (0-5)
== END | disposition home or self-care (01) ==
LOC: LABSPEC 12:39
PROVIDERS: PCP Internal Medicine; Referring Provider Internal Medicine; Visit Provider Internal Medicine
DX: E11.9 Type 2 diabetes mellitus without complications (principal)
CPT/HCPCS: 80053; 81001; 82043; 82570; 82607; 82746; 85025